=== PATIENT | male | born 1950 | race Caucasian/White ===

== ENCOUNTER 2018-07-13 16:18 | Emergency (ER) | payer MEDICARE, OTHER ==
[~2018-07-13] VITALS: Ht 182.9 cm; Wt 106.6 kg
--- NOTE | 2018-07-13 16:31 | RAD ---
RS Compliance Statement: One or more of the following individualized dose reduction techniques were utilized for this examination: 1. Automated exposure control 2. Adjustment of the mA and/or kV according to patient size 3. Use of iterative reconstruction technique CT head without contrast 07/13/2018 4:16 PM INDICATION: Code stroke COMPARISON: None available TECHNIQUE: Multiple axial CT images of the head were obtained from skull base through the vertex without intravenous contrast. FINDINGS: Head: Ventricles, sulci and basal cisterns are within normal limits. There is no hydrocephalus. Bowman-white matter differentiation is normal. There is no acute intracranial hemorrhage. There is no mass, mass effect or midline shift. Posterior fossa is normal in appearance. Hyperdense right M1 segment of the middle cerebral artery territory which may be associated with thrombus. Visualized portions of the orbits are normal. Paranasal sinuses are well aerated. Mastoid air cells are well aerated. Scalp and calvaria are normal. IMPRESSION: No acute intracranial hemorrhage. Hyperdense right M1 segment of the middle cerebral artery territory which may be associated with thrombus. Further evaluation with CTA of the head may be of benefit as clinically warranted. Critical result: Findings discussed with GWEN JEFFRIES at 07/13/2018 4:27 PM. FOR INTERNAL CODING PURPOSES RESULT CODE: (C) Electronically signed by: Joanne White MD (07/13/2018 4:28 PM) [id number]
[2018-07-13 16:44] LABS: HEMATOCRIT 43.3 % (39.0-53.0); HEMOGLOBIN 14.8 g/dL (13.0-17.5); RED BLOOD COUNT 4.54 x10^6/uL (4.30-5.70); RED CELL DISTRIBUTION WIDTH 12.2 % (11.5-14.5); WHITE BLOOD COUNT 8.8 x10^3/uL (4.0-11.0)
[2018-07-13 16:54] LABS: PROTHROMBIN TIME PATIENT 13.4 SEC (11.7-14.0)
[2018-07-13 16:56] LABS: CALCIUM 9.3 mg/dL (8.5-10.1); CREATININE 1.3 mg/dL (0.7-1.3); GFR 54.7; POTASSIUM 3.4 mmol/L (3.5-5.1)
[2018-07-13] MEDS ORDERED: ALTEPLASE 81 MG IV SCH (17:00)
[2018-07-13] MEDS ORDERED: ALTEPLASE 9 MG IV ONE (17:00)
[2018-07-13] MEDS ORDERED: IV NORMAL SALINE 50ML 50 ML IV ONE (17:00)
[2018-07-13] MEDS ORDERED: LABETALOL 20 MG/4 ML DISP.SYRIN. IVP PRN (17:00)
--- NOTE | 2018-07-13 17:03 | PHYS DOC ---
Adult General Chief Complaint Chief Complaint: NEURO SYMPTOMS/DEFICITS HPI HPI 68-year-old relatively healthy male presents with sudden onset of left-sided weakness. 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 Patient came directly to our emergency department. There were no preceding symptoms. Patient denies any pain at this time. He does state that he is unable to move his left side.[] Review of Systems Review of Systems Constitutional: Denies fever or chills [] Eyes: Denies change in visual acuity, redness, or eye pain [] HENT: Denies nasal congestion or sore throat [] Respiratory: Denies cough or shortness of breath [] Cardiovascular: No additional information not addressed in HPI [] GI: Denies abdominal pain, nausea, vomiting, bloody stools or diarrhea [] : Denies dysuria or hematuria [] Musculoskeletal: Denies back pain or joint pain [] Integument: Denies rash or skin lesions [] Neurologic: Per history of present illness[] Endocrine: Denies polyuria or polydipsia [] All other systems were reviewed and found to be within normal limits, except as documented in this note. Current Medications Current Medications Current Medications Medications (Trade) Dose Ordered Sig/Dayanna Start Time Stop Time Status Last Admin Dose Admin Alteplase, Recombinant 81 ml @ 0 mls/hr Q1H 07/13/18 17:00 07/13/18 17:01 Labetalol HCl (Normodyne Iv Push) 10 mg PRN Q10MIN PRN 07/13/18 17:00 Nicardipine HCl 50 mg/Sodium Chloride 250 ml @ 25 mls/hr CONT PRN PRN 07/13/18 17:00 Sodium Chloride 50 ml @ 0 mls/hr 1X ONCE 07/13/18 17:00 07/13/18 17:01 Allergies Allergies Allergies Coded Allergies Type Severity Reaction Last Updated Verified Penicillins Allergy Intermediate rash 07/13/18 Yes Physical Exam Physical Exam Constitutional: Well developed, well nourished, no acute distress, non-toxic appearance. Initial blood pressure is 140 systolic[] HENT: Normocephalic, atraumatic, bilateral external ears normal, oropharynx moist, no oral exudates, nose normal. [] Eyes: PERRLA, EOMI, conjunctiva normal, no discharge. [] Neck: Normal range of motion, no tenderness, supple, no stridor. [] Cardiovascular:Heart rate regular rhythm, no murmur [] Lungs & Thorax: Bilateral breath sounds clear to auscultation [] Abdomen: Bowel sounds normal, soft, no tenderness, no masses, no pulsatile masses. [] Skin: Warm, dry, no erythema, no rash. [] Back: No tenderness, no CVA tenderness. [] Extremities: No tenderness, no cyanosis, no clubbing, ROM intact, no edema. [] Neurologic: NIH stroke scale score is 21 patient has left him hemapheresis on right gaze preference[] Psychologic: Anxious[] Current Patient Data Vital Signs Vital Signs Date Time Temp Pulse Resp B/P (MAP) Pulse Ox O2 Delivery O2 Flow Rate FiO2 07/13/18 16:18 97.9 93 16 140/77 (98) 99 Room Air 97.9 Lab Values Laboratory Tests Test 07/13/18 16:30 White Blood Count 8.8 x10^3/uL (4.0-11.0) Red Blood Count 4.54 x10^6/uL (4.30-5.70) Hemoglobin 14.8 g/dL (13.0-17.5) Hematocrit 43.3 % (39.0-53.0) Mean Corpuscular Volume 95 fL (79-100) Mean Corpuscular Hemoglobin 33 pg (25-35) Mean Corpuscular Hemoglobin Concent 34 g/dL (31-37) Red Cell Distribution Width 12.2 % (11.5-14.5) Platelet Count 258 x10^3/uL (140-400) Prothrombin Time 13.4 SEC (11.7-14.0) Prothrombin Time INR 1.1 (0.8-1.1) PTT 32 SEC (24-38) Sodium Level 139 mmol/L (136-145) Potassium Level 3.4 mmol/L (3.5-5.1) L Chloride Level 104 mmol/L (98-107) Carbon Dioxide Level 23 mmol/L (21-32) Anion Gap 12 (6-14) Blood Urea Nitrogen 13 mg/dL (8-26) Creatinine 1.3 mg/dL (0.7-1.3) Estimated GFR (Cockcroft-Gault) 54.7 Glucose Level 116 mg/dL (70-99) H Calcium Level 9.3 mg/dL (8.5-10.1) Laboratory Tests 07/13/18 16:30 Laboratory Tests 07/13/18 16:30 EKG EKG [] Interpretation Time: EKG: Normal sinus rhythm and intraventricular conduction delay and no obvious ischemic changes Radiology/Procedures Radiology/Procedures [] Impressions: REASON: code stroke PROCEDURE: CT HEAD WO CONTRAST PQRS Compliance Statement: One or more of the following individualized dose reduction techniques were utilized for this examination: 1. Automated exposure control 2. Adjustment of the mA and/or kV according to patient size 3. Use of iterative reconstruction technique CT head without contrast 07/13/2018 4:16 PM INDICATION: Code stroke COMPARISON: None available TECHNIQUE: Multiple axial CT images of the head were obtained from skull base through the vertex without intravenous contrast. FINDINGS: Head: Ventricles, sulci and basal cisterns are within normal limits. There is no hydrocephalus. Bowman-white matter differentiation is normal. There is no acute intracranial hemorrhage. There is no mass, mass effect or midline shift. Posterior fossa is normal in appearance. Hyperdense right M1 segment of the middle cerebral artery territory which may be associated with thrombus. Visualized portions of the orbits are normal. Paranasal sinuses are well aerated. Mastoid air cells are well aerated. Scalp and calvaria are normal. IMPRESSION: No acute intracranial hemorrhage. Hyperdense right M1 segment of the middle cerebral artery territory which may be associated with thrombus. Further evaluation with CTA of the head may be of benefit as clinically warranted. Course & Med Decision Making Course & Med Decision Making Pertinent Labs and Imaging studies reviewed. (See chart for details) [ED course: Evaluation reveals a 68-year-old male who presents less than an hour after developing acute left sided weakness. His NIH stroke scale was 21. Patient went directly to the CT scanner and after reviewing the CT scan with the radiologist that showed what appeared to be a thrombus in the left M1 off the middle cerebral artery. At this point it was determined that the patient was a candidate for out place. I spoke with Dr. Mckinley at who agreed to accept the patient in transfer. I also spoke with Dr. Tom who agreed with the patient being transferred to for likely clot retrieval. CRITICAL CARE: Time spent was 35 minutes. This includes medical management, evaluation, reevaluation, discussion with consultants and family. Critical Care does NOT include time spent on separately billed procedures. ] Dragon Disclaimer Dragon Disclaimer This electronic medical record was generated, in whole or in part, using a voice recognition dictation system. Departure Departure Impression: Primary Impression: Acute CVA (cerebrovascular accident) Disposition: 05 TRANSFER OTHER ([facility]) Condition: CRITICAL GWEN JEFFRIES DO July 13, 2018 17:03
[2018-07-13 17:09] LABS: BILIRUBIN,URINE NEGATIVE (NEG); CLARITY,URINE CLEAR; COLOR,URINE YELLOW; NITRITE,URINE NEGATIVE (NEG); PROTEIN,URINE NEGATIVE (NEG-TRACE); UROBILINOGEN,URINE 0.2 mg/dL (0.2 mg/dL)
[2018-07-13 17:12] VITALS: BP 145/88
[2018-07-13 17:19] LABS: BACTERIA,URINE 0 /HPF (0-FEW); RBC,URINE 0 /HPF (0-2); WBC,URINE 0 /HPF (0-4)
--- NOTE | 2018-07-14 07:46 | EKG ---
[facility] [address] [place] [id number] Test Date: 2018-07-13 Test Time: 16:30:48 Pat Name: JOSE CEDEÑO Department: Room: Gender: M [employer]ic: : 1950 Requested By: GWEN JEFFRIES Order Number: [id number] Reading MD: Saad Person Measurements Intervals [place] Rate: 88 P: 90 ID: [id number] QRS: -5 QRSD: 116 T: 52 QT: 392 QTc: 478 Interpretive Statements SINUS RHYTHM VENTRICULAR PREMATURE COMPLEX(ES) LEFTWARD AXIS LOW LIMB LEAD VOLTAGE PROLONGED QT ABNORMAL ECG RI6.01 Unconfirmed report No previous ECG available for comparison Electronically Signed On 08-11-2018 13:07:37 CDT by Saad Person
== END 2018-07-13 17:17 | disposition short-term general hospital (02) ==
LOC: ER 16:18
DX: I63.9 Cerebral infarction, unspecified (principal); I69.354 Hemiplegia and hemiparesis following cerebral infarction affecting left non-dominant side; R29.721 NIHSS score 21; Z88.0 Allergy status to penicillin
CPT/HCPCS: 36415; 37195; 70450; 80048; 81001; 82962; 85027; 85610; 85730; 93005; 99285; J2997